=== PATIENT | female | born 1980 | race Caucasian/White ===

== ENCOUNTER → 2016-06-19 | Outpatient (CLI) | payer OTHER ==
--- NOTE | 2016-06-19 20:21 | US ---
June 19, 2016 Dear Geena Anders CNM, Thank you very much for allowing us to see your patient Raya King. As you know, she is a 35-year -old, 1 who was asked to see us for aneuploidy screening and consult. Her history is significant for advanced maternal age (36 at delivery) and uterine fibroids. LMP: 03/27/2016 Age by Dates: 12 weeks 5 days EDC: 12/27/2016 by 7-week ultrasound ULTRASOUND [place] rump length: 75 mm Gestational age by crown rump length: 13 weeks 3 day(s) SKYLAR by crown rump length: 12/22/2016 Consistent with established dating: Yes Nuchal translucency: 1.5 mm Nasal bone: Present heart rate: 153 bpm Placenta: Anterior Right ovary not visualized. Left ovary not visualized. There are two uterine fibroids visualized on today's ultrasound. One is subserosal and located poste riorly. It measures 2.9 x 2.3 x 2.3 cm. The other is located on the right and measures 2.6 x 2.5 x 2.1 cm. No overt structural anomalies were identified for this early ultrasound, but please note that a full anatomic evaluation has not occurred at this early gestational age. IMPRESSION: 1. Intrauterine at 12 weeks 5 days with EDC 12/27/2016. 2. The limited anatomy appears normal. 3. Advanced maternal age. The two Down syndrome markers are normal. We discussed the different opti ons of diagnosis that are available to the patient. We discussed the Sequential Screen and cell-free DNA testing (cffDNA, NIPT). The Sequential Screen has a 92% detection rate for Downs syndrome and a 90% detection rate for trisomy 18. It also screens for spina bifida. The cffDNA fara t screens for trisomy 21, trisomy 18, and trisomy 13 with a low false positive and false negative rat e. A separate blood draw for MSAFP is still required for assessment of neural tube defect risk. Bot h the Sequential Screen and cffDNA are screening tests, and positive results require confirmation wit h invasive testing for a definitive diagnosis. The only way to know the chromosomes of the fetus wo uld be to have an invasive test such as an amniocentesis or chorionic villus sampling, risks of which were reviewed. She does not desire invasive testing at this time. 4. Uterine fibroids. Fibroids are benign growths of the myometrium. They can be asymptomatic or ca n cause symptoms such as pelvic pain and heavy periods. They can grow in size under the hormonal inf luences of . Depending on their size and location they may increase risks of growth restric tion, labor, malpresentation, and hemorrhage during . RECOMMENDATIONS: Raya decided to proceed with the Sequential Screen today while she inquires about insurance covera ge for NIPT. I reviewed that NIPT can be done anytime during the after 10 weeks. We took the liberty of drawing her blood today. Someone from this office will contact the patient with the r esults of her testing. -She will need to have the blood draw for the second part of her Sequential Screen drawn after 16 wee ks. -Recommend detailed anatomy ultrasound at 20 weeks. Thank you for allowing us the opportunity to evaluate your patient. Should you have any further ques tions or concerns please do not hesitate to contact me. Approximately 30 minutes were spent with the patient, of which 25 minutes were spent in [id number] consultation discussing screening and diagnosis and uterine fibroids. Vianney Watts M.D., Ph.D. Computational Geneticist Department of Obstetrics and Gynecology [facility]
--- NOTE | 2016-06-20 08:19 | US ---
Obstetrical Ultrasound 1st Trimester, Nuchal measurement, <14 weeks Clinical Indications: Advanced maternal age. Intrauterine . Findings: A single viable intrauterine fetus is identified. LMP: March 27, 2016 Gestational Age by LMP: 12 weeks 5 days SKYLAR by LMP: December 27, 2016 CRL: 75.32 mm Gestational Age by CRL: 13 weeks 5 days SKYLAR by CRL: December 22, 2016 FHR = 153 beats per minute. Nuchal translucency is 1.5 mm. Nasal bone is identified. No subchorionic hemorrhage. Anterior placenta. Cervix appears closed. Ovaries not visualized. 2 uterine fibroids with a posterior uterine fibroid measuring 2.9 x 2.3 x 2.3 cm and a right uterine fibroid measuring 2.6 x 2.5 x 2.1 cm. Impression: 1. Single viable intrauterine gestation with size consistent with LMP dates. 2. FHR = 153 BPM. 3. Recommend followup anatomy scan between 19 and 20 weeks gestation. 4. Uterine fibroids. 5.Please see Dr. Vianney Watts consult and recommendations.
== END ==
LOC: FIMAGING 12:07
PROVIDERS: ATTEND Midwife
DX: O09.511 Supervision of elderly primigravida, first trimester (principal); O34.11 Maternal care for benign tumor of corpus uteri, first trimester

== ENCOUNTER → 2016-07-15 | Outpatient (CLI) | payer OTHER | LOC: FIMAGING 12:45 | PROVIDERS: ATTEND Midwife | DX: O09.522 Supervision of elderly multigravida, second trimester (principal); Z3A.16 16 weeks gestation of pregnancy; O34.592 Maternal care for other abnormalities of gravid uterus, second trimester; D25.9 Leiomyoma of uterus, unspecified ==

== ENCOUNTER → 2016-08-07 | Outpatient (CLI) | payer OTHER | LOC: FIMAGING 10:39 | PROVIDERS: ATTEND Midwife | DX: O09.512 Supervision of elderly primigravida, second trimester (principal); O34.12 Maternal care for benign tumor of corpus uteri, second trimester; Z3A.19 19 weeks gestation of pregnancy ==

== ENCOUNTER → 2016-12-26 | Outpatient (CLI) | payer OTHER ==
[~2016-12-26] MED LIST: PROPOFOL 200 MG/20 ML VIAL ONE
== END ==
LOC: FIMAGING 11:53
PROVIDERS: ATTEND Midwife
DX: O28.3 Abnormal ultrasonic finding on antenatal screening of mother (principal); O34.13 Maternal care for benign tumor of corpus uteri, third trimester; O09.513 Supervision of elderly primigravida, third trimester; Z3A.39 39 weeks gestation of pregnancy
CPT/HCPCS: J2704

== ENCOUNTER 2016-12-28 01:58 | Inpatient (IN) | payer OTHER ==
[2016-12-28] MEDS ORDERED: TERBUTALINE SULFATE 1 MG/ML VIAL IV PRN (03:02)
[2016-12-28] MEDS ORDERED: AMPICILLIN SODIUM 2 GM in NS 100 ML IV ONE (03:02)
[2016-12-28] MEDS ORDERED: OXYTOCIN/RINGERS LACTATE 1,000 ML IV PRN (03:02)
[2016-12-28] MEDS ORDERED: IBUPROFEN 600 MG TAB PO PRN (03:02)
[2016-12-28] MEDS ORDERED: OLIVE OIL 118 ML BTL MISC PRN (03:02)
[2016-12-28] MEDS ORDERED: LR 1,000 ML IV PRN (03:02)
[2016-12-28] MEDS ORDERED: EPSOM SALT 454 GM TP PRN (03:02)
[2016-12-28] MEDS ORDERED: AMMONIA AROMATIC 1 EACH AMP IH ONE (03:18)
[2016-12-28] MEDS ORDERED: OXYTOCIN 10 UNIT/ML VIAL ONE (03:18)
[2016-12-28] MEDS ORDERED: LIDOCAINE 1% 300 MG/30 ML SDV ONE (03:18)
[2016-12-28] MEDS ORDERED: MISOPROSTOL 200 MCG TAB ONE (03:19)
[2016-12-28 03:59] LABS: % IMMATURE GRANULYOCYTES 0.5 % (0.0-1.1); ABSOLUTE IMMATURE GRANULOCYTES 0.08 10^3/uL (0.00-0.10); ADD DIFF? NO; ADD MORPH? NO; ADD SCAN? NO; ATYPICAL LYMPHOCYTE FLAG 0 (0-99); FRAGMENT RBC FLAG 0 (0-99); HEMATOCRIT 38.5 % (38.0-47.0); HEMOGLOBIN 13.3 g/dL (12.6-16.3); LEFT SHIFT FLG 0 (0-99); LIPEMIA HEMOLYSIS FLAG 90 (0-99); MEAN CELL HEMOGLOBIN 31.3 pg (27.9-34.1); MEAN CELL HEMOGLOBIN CONCENTR. 34.5 g/dL (32.4-36.7); MEAN CELL VOLUME 90.6 fL (81.5-99.8); MEAN PLATELET VOLUME 11.1 fL (8.7-11.7); PLATELET CLUMPS FLAG 10 (0-99); PLATELET COUNT 275 10^3/uL (150-400); RED BLOOD CELL COUNT 4.25 10^6/uL (4.18-5.33); RED CELL DISTRIBUTION WIDTH 13.1 % (11.5-15.2)
--- NOTE | 2016-12-28 07:01 | GHP ---
[f rep st] HISTORY AND PHYSICAL DATE OF ADMISSION: 12/28/2016 CHIEF COMPLAINT: Uterine contractions. HISTORY OF PRESENT ILLNESS: Patient is a 36-year-old, 1, para 0, at 40 weeks and 1 day gestation who presents with regular uterine contractions. She has had a complicated by advanced maternal age with initial 2nd trimester screening showing increased risk for Down's syndrome, but then she had followup noninvasive screening negative and normal anatomy ultrasound, Rh-negative, status post RhoGAM at 28 weeks, two small uterine fibroids have been stable, and group B Strep positive. She initially started lc around 11 p.m. She presented to the hospital around 2 a.m. and was found to be 3 cm dilated. On repeat check 2 hours later she had progressed to 6 cm dilation. She denies any leaking fluid or vaginal bleeding. Her baby is active. She has no other concerns. She plans an unmedicated delivery. REVIEW OF SYSTEMS: Negative apart from history of present illness. PAST MEDICAL HISTORY: Noncontributory. PAST SURGICAL HISTORY: None. MEDICATIONS: vitamin 65 mg tablet, iron, fish oil. FAMILY HISTORY: Noncontributory. SOCIAL HISTORY: No alcohol, tobacco, or drug use. LABORATORY TESTING: Notable for blood type O negative with antibody screen negative. Initial hematocrit of 37. Immune to varicella and rubella, nonreactive to RPR, HIV and hepatitis B surface antigen. She had a negative urine culture, a negative Pap smear in 2016, negative testing to gonorrhea and chlamydia. She is group B Strep positive. She received flu vaccine and Tdap. She had a normal 1 hour Glucola. OBJECTIVE: VITAL SIGNS: Blood pressure 123/77, heart rate 93, O2 saturation is 97%, temperature 36.7. Hematocrit 38.5. GENERAL: Alert, awake and oriented , in mild to moderate distress with contractions. LUNGS: Respirations unlabored. CARDIOVASCULAR: Regular rate and rhythm. ABDOMEN: Gravid uterus at term. Soft and nontender. EXTREMITIES: No edema. Warm and dry. : Sterile vaginal exam, 7-8 cm dilated, 90% effaced, -1 station. Bulging bag of water. heart rate tracing baseline 120 beats per minute. Moderate variability. Positive accelerations. No decelerations. ASSESSMENT AND PLAN: The patient is a 36-year-old 1, at 40 weeks and 1 day estimated gestational age. She is in active labor. She is GBS positive and receiving IV ampicillin. She has received 1 dose. Her status is reassuring. We will proceed with routine intrapartum care. She desires an unmedicated . We will expect and plan for vaginal delivery. /[id number]/MODL MTDD
--- NOTE | 2016-12-28 08:04 | OBPROG ---
OBG Labor Progress Note Assessment/Plan: Assessment: G1 at 40w1d in active labor Minimal change since last check GBS pos, receiving 2nd dose of ampicillin status reassuring Plan: Recommend AROM for AOL given no change in 2.5 hrs she agrees: will start nitrous first and also finish 2nd dose of abx which is currently infusing 12/28/16 08:02 Subjective: Getting tired. Wants to try nitrous Objective: 12/28/16 03:20 Patient ABO/Rh O NEGATIVE 12/28/16 03:20 136/83 86 18 98% 36.6 - SVE Dilation (cm): 8 Effacement (%): 90 Station: -1 Gutierrez FHR (bpm): 110 FHR Pattern Variability: Moderate FHR Category: 1 Membranes: Intact Oxytocin Orders Assessment - Pre-Induction/Augmentation Assessment Gestational Age: 40 week(s) and 1 day(s) ICD10 Worksheet Patient Problems: Problems Problem Status Onset Active labor Acute - ICD10 Problem Qualifiers (1) Active labor
--- NOTE | 2016-12-28 10:30 | OBPROG ---
OBG Labor Progress Note Assessment/Plan: Assessment: G1 at 40w1d in active labor Now pushing Intermittent monitoring-- status reassuring Plan: Continue pushing, pt with good effort and making good progress Subjective: Pushing with good effort Objective: 12/28/16 03:20 Patient ABO/Rh O NEGATIVE 12/28/16 03:20 - SVE Dilation (cm): 10 Effacement (%): 100 Station: +1 Gutierrez Current Contraction Pattern: Regular FHR (bpm): 130 FHR Pattern Variability: Moderate FHR Category: 1 Membranes: Intact Oxytocin Orders Assessment - Pre-Induction/Augmentation Assessment Gestational Age: 40 week(s) and 1 day(s) ICD10 Worksheet Patient Problems: Problems Problem Status Onset Active labor Acute - ICD10 Problem Qualifiers (1) Active labor
[2016-12-28] MEDS ORDERED: fentaNYL 100 MCG/2 ML INJ ONE (12:23)
[2016-12-28] MEDS ORDERED: METHYLERGONOVINE MAL 0.2 MG/ML INJ ONE ×4 (13:00→13:50)
[2016-12-28] MEDS ORDERED: HEMABATE 250 MCG/1 ML AMP IM ONE (13:28)
[2016-12-28] MEDS ORDERED: TRANEXAMIC ACID 1,000 MG in NS 100 ML IV ONE (14:00)
[2016-12-28 14:25] LABS: ADD MORPH? YES; ATYPICAL LYMPHOCYTE FLAG 0 (0-99); FRAGMENT RBC FLAG 0 (0-99); HEMATOCRIT 19.8 % (38.0-47.0); LIPEMIA HEMOLYSIS FLAG 80 (0-99); MEAN CELL HEMOGLOBIN 31.4 pg (27.9-34.1); MEAN CELL HEMOGLOBIN CONCENTR. 30.3 g/dL (32.4-36.7); MEAN CELL VOLUME 103.7 fL (81.5-99.8); PLATELET CLUMPS FLAG 0 (0-99); RED BLOOD CELL COUNT 1.91 10^6/uL (4.18-5.33); RED CELL DISTRIBUTION WIDTH 12.2 % (11.5-15.2)
[2016-12-28 14:27] LABS: LEFT SHIFT FLG 110 (0-99)
[2016-12-28 14:29] LABS: PLATELET COUNT 23 10^3/uL (150-400)
[2016-12-28 14:32] LABS: ADD DIFF? YES; ADD SCAN? NO
--- NOTE | 2016-12-28 14:41 | CPEKG ---
Heart Rate: 97 RR Interval: 619 P-R Interval: 144 QRSD Interval: 90 QT Interval: 400 QTC Interval: 508 P [place]: 76 QRS [place]: 95 T Wave [place]: 66 EKG Severity - BORDERLINE ECG - EKG Impression: SINUS RHYTHM EKG Impression: BORDERLINE RIGHT AXIS DEVIATION EKG Impression: BORDERLINE PROLONGED QT INTERVAL Electronically Signed By: Maximiliano Walker 29-Dec-2016 17:23:47
[2016-12-28 15:12] LABS: PLATELET ESTIMATE DECREASED (ADEQ)
[2016-12-28 15:15] LABS: ECHINOCYTES 2+
[2016-12-28 15:27] LABS: ALPHA ANGLE 75.2 degrees (53-72); K TIME 1.2 minutes (1-3); MAXIMUM AMPLITUDE 68.2 mm (50-70); TEG CONTAINER Citrated Kaolin
[2016-12-28 15:55] LABS: APTT > 250.0 SEC (23.0-38.0); FIBRINOGEN < 60 mg/dL (214-456)
--- NOTE | 2016-12-28 15:55 | OBDEL ---
Info Type: Vaginal GBS+: Yes Antibiotic Used for + GBS: Ampicillin Number of Antibiotic Doses Given: 3 Indications for Delivery: Spontaneous Labor Vaginal Delivery - Labor and Delivery Onset of Contractions Date: 12/27/16 Onset of Contractions Time: 11:00 Onset of Contractions Type: Spontaneous Rupture of Membranes Date: 12/28/16 Rupture of Membranes Type: Artificial Amniotic Fluid Color: Clear Dilation Complete Date: 12/28/16 Placenta Delivery Date: 12/28/16 Placenta Delivery Time: 12:30 Total Hours of Labor: 25 Non-surgical Procedures: Amniotomy Laceration: 1st Degree Repair: 3-0 Vaginal Sponge Count Correct: Yes Vaginal Needle Count Correct: Yes Vaginal Sweep Performed: Yes EBL: 3500 Delivery Events: Post Hemorrhage, Retained Placenta Delivery Comment: of vigorous male . About 3 minutes after delivery there was a large gush of dark blood (~ 200 ml) and lengthening of the cord consistent with separation of the placenta. The cord was doubly clamped and cut. IV pitocin was started. Fundal massage and gentle cord traction was performed. Initially there was good movement of the placenta to the lower uterine segment, however after this the placenta was not advancing with ongoing fundal massage and gentle cord traction. I asked the patient to push, which she did a few times. This brought the placenta partially out through the cervix. Additional massage was performed. Gentle cord traction was again attempted and the cord avulsed at this time. An attempt was made to grasp the placenta and remove, but only pieces of the placenta were obtainable. The US and banjo curette and noman forceps were called for. The US showed there was still a piece of adherent placenta in the anterior wall. This was not able to be removed with manual attempt, noman forceps, or banjo curette, the latter 2 which were done under ultrasound guidance. At this time she began to have more bleeding and atony of the lower uterine segment, with an EBL of 700 ml. One dose IM methergine was given. The recommendation was made to proceed to the OR for D&C for retained placenta under ultrasound guidance. We reviewed the risks and benefits and she agreed to proceed. She also agreed to blood transfusion if indicated, and 2 units pRBCs were put on hold. Please see operative note for further details. [place] Data Gutierrez Delivery Date: 12/28/16 Delivery Time: 12:05 SKYLAR: 12/27/16 Gestational Age: 40 week(s) and 1 day(s) Sex of : Male Score (1 Min): 8 Score (5 Min): 9 ICD10 Worksheet Patient Problems: Problems Problem Status Onset Active labor Acute hemorrhage Acute Retained placenta Acute Vaginal delivery Acute - ICD10 Problem Qualifiers (1) Active labor (2) hemorrhage Qualifiers: hemorrhage type: P (3) Vaginal delivery (4) Retained placenta Qualifiers: Retained placenta detail: R
[2016-12-28 16:10] LABS: % IMMATURE GRANULYOCYTES 0.9 % (0.0-1.1); ABSOLUTE IMMATURE GRANULOCYTES 0.19 10^3/uL (0.00-0.10); ADD DIFF? NO; ADD MORPH? NO; ADD SCAN? YES; ATYPICAL LYMPHOCYTE FLAG 0 (0-99); FRAGMENT RBC FLAG 0 (0-99); HEMATOCRIT 43.7 % (38.0-47.0); LEFT SHIFT FLG 60 (0-99); LIPEMIA HEMOLYSIS FLAG 90 (0-99); MEAN CELL HEMOGLOBIN 31.4 pg (27.9-34.1); MEAN CELL HEMOGLOBIN CONCENTR. 34.3 g/dL (32.4-36.7); MEAN CELL VOLUME 91.4 fL (81.5-99.8); MEAN PLATELET VOLUME 11.2 fL (8.7-11.7); PLATELET COUNT 245 10^3/uL (150-400); RED BLOOD CELL COUNT 4.78 10^6/uL (4.18-5.33); RED CELL DISTRIBUTION WIDTH 13.2 % (11.5-15.2)
[2016-12-28] MEDS ORDERED: ALTEPLASE 2 MG VIAL IVP PRN (16:10)
--- NOTE | 2016-12-28 16:32 | GCON ---
[f rep st] CONSULTATION PULMONARY CRITICAL CARE CONSULTATION DATE OF CONSULTATION: 12/28/2016 REASON FOR CONSULTATION: bleed, acute blood loss anemia. HISTORY: The patient is a 36-year-old 1 now para 1, who was admitted for child . She started lc and was dilated at 3 cm. She had a spontaneous vaginal delivery, but had retain ed placenta and had uterine bleeding secondary to this post delivery. She was taken to the OR. D a nd C was performed and retained materials removed. She continued, however, to bleed. Estimated blo od loss is possibly 3000 mL ?. Massive transfusion protocol was initiated. She has received 6 unit s of packed red blood cells with more on hold, 2 units of platelets and 2 of fresh frozen plasma. S he was also given tranexamic acid. She was given terbutaline x1. She is also on intravenous fluids and ampicillin intravenously. A uterine balloon has been placed and remains in place for monitoring of intrauterine bleeding. The vagina was packed. She is being attended to by her OB physician as well as an OB nurse, as well as our nurses from the ICU. She is awake and alert. She has been shivering since the OR. Vital signs are currently stable. Fernando landrum is conversant and appropriate. PAST MEDICAL HISTORY: Is unremarkable. She has no medical problems. PAST SURGICAL HISTORY: No previous surgical history MEDICATIONS: She was only on vitamins, iron and fish oil prior to admission. SOCIAL HISTORY: . No alcohol. No tobacco. No drug use. FAMILY HISTORY: Noncontributory. PHYSICAL EXAMINATION: GENERAL: Reveals a woman who is shivering intermittently and has 2 blankets over her. VITAL SIGNS: Blood pressure is currently 116/88, heart rate is 86 with sinus rhythm on t he monitor. On an oxy mask, saturations are 100%. Respiratory rate is 16. HEENT: Mucous membrane s are somewhat dry. NECK: There is no lymphadenopathy or thyromegaly. No jugular venous distentio n. CHEST: Clear bilaterally. HEART: Regular in rate and rhythm, without significant murmur. The re are no gallops. ABDOMEN: Soft. There is some erythema over the abdomen, without cellulitis. G ENITOURINARY/PELVIC: A Reddy catheter and a uterine balloon are both in place. There is a small am ount of bloody drainage that is being monitored from the uterus. Urine output is present. EXTREMIT IES: Unremarkable for edema, cords, or tenderness. SKIN: Shows several areas of hives. NEUROLOGI C: Intact. LABORATORY DATA: Her latest laboratory values show a white blood cell count of 2500 down from appro ximately 15,000 an hour prior, hematocrit is currently approximately 20 down from 38, platelets are 223,000 down from 275,000. I believe that these numbers do not represent the complete blood and blo od products given in the operating room. Further studies are pending. PT and PTT are pending. D-d morris is normal. Fibrinogen is pending. ASSESSMENT: 1. bleed secondary to retained placenta. 2. Acute blood loss anemia associated with leukopenia and thrombocytopenia. This may all be diluti onal. DIC may be playing a role. DIC panel is pending. PLAN: The patient will be resuscitated in the intensive care unit. Intravenous fluids will be cont inued. Blood and blood products will be given as indicated based on subsequent laboratory values. A complete metabolic panel will be performed and abnormalities addressed as indicated. She will be monitored closely by OB for ongoing uterine bleeding. If bleeding persists, their first plan would be to consider uterine embolization in IR. /[id number]/MODL
[2016-12-28 16:34] LABS: PLATELET CLUMPS FLAG 250 (0-99)
[2016-12-28 16:43] LABS: SCAN NEGATIVE
[2016-12-28] MEDS ORDERED: methylPREDNISolone SOD SUCC 40 MG/ML VIAL IVP ONE (16:45)
[2016-12-28] MEDS ORDERED: FAMOTIDINE 20 MG/2 ML SDV IVP ONE (16:45)
[2016-12-28 17:06] LABS: HEMATOCRIT 37.5 % (38.0-47.0); HEMOGLOBIN 13.4 g/dL (12.6-16.3); MEAN CELL HEMOGLOBIN 31.5 pg (27.9-34.1); MEAN CELL HEMOGLOBIN CONCENTR. 35.7 g/dL (32.4-36.7); RED BLOOD CELL COUNT 4.26 10^6/uL (4.18-5.33); RED CELL DISTRIBUTION WIDTH 13.2 % (11.5-15.2)
[2016-12-28 17:13] LABS: PLATELET COUNT 246 10^3/uL (150-400)
[2016-12-28 17:15] LABS: INR 1.06 (0.83-1.16); PROTIME(PATIENT) 13.7 SEC (12.0-15.0)
[2016-12-28 17:17] LABS: ANION GAP 7 mEq/L (8-16); CALCIUM 9.3 mg/dL (8.5-10.4); CARBON DIOXIDE 16 mEq/l (22-31); CHLORIDE 108 mEq/L (97-110); CREATININE 0.6 mg/dL (0.6-1.0); GLOMERULAR FILTRATION RATE > 60; GLUCOSE 106 mg/dL (70-100); POTASSIUM 3.9 mEq/L (3.5-5.2); SODIUM 131 mEq/L (134-144)
[2016-12-28 17:21] LABS: APTT 26.7 SEC (23.0-38.0); FIBRINOGEN 300 mg/dL (214-456)
[2016-12-28] MEDS ORDERED: HYDROmorphONE/DILAUDID 1 MG/ML SYR IVP PRN (18:09)
[2016-12-28] MEDS: GENTAMICIN SULFATE 120 MG in D5W 100 ML IV SCH (18:27)
[2016-12-28] MEDS ORDERED: NS 1,000 ML IV SCH (19:00)
--- NOTE | 2016-12-28 19:04 | SOAPPROG ---
SOAP Progress Note Assessment/Plan: Assessment: , PPD#0 s/p , POD#0 s/p D&C, massive transfusion for PPH/retained placenta Pt is hemodynamically stable and doing well Minimal output from Bakri Fundus firm Labs reassuring with normal Hgb, INR, fibrinogen Reviewed plan of care with Dr. Merchant: no UAE indicated at this time Plan: Monitor overnight in ICU Clear liquid diet, advance as tolerated Bedrest tonight, plan advance activity tomorrow Gentamycin 150 mg po q8h while Bakri in place (pt developed hives upon arrival to ICU, unknown source but possibly to Ancef given in OR) Monitor bleeding Plan removal Bakri and vag pack tomorrow, to be performed by MD Motley LR with 30 units pitocin at 125 ml/hr, then plan NS at 75 ml/hr per recommendation of Dr. Ty Repeat CBC and BMP in AM or earlier prn 12/28/16 19:04 Subjective: Tired but overall feeling well. Hungry. No pain. Wants to start pumping Objective: Vital Signs Temp Pulse Resp BP Pulse Ox 95 18 120/64 95 12/28/16 18:00 12/28/16 18:00 12/28/16 18:00 12/28/16 18:00 Laboratory Results 12/28/16 17:00 12/28/16 17:00 12/27/16 12/28/16 12/29/16 05:59 05:59 05:59 Intake Total 359.8 Output Total 750 Balance -390.2 PT 13.7 SEC (12.0-15.0) 12/28/16 17:00 INR 1.06 (0.83-1.16) 12/28/16 17:00 Gen: alert, awake Resp: lungs clear, respirations unlabored CV: RRR Abd: soft, nontender, uterus firm at umbilicus Ext: no edema Reddy catheter with adequate output Bakri draining small amount dark watery blood (~ 25 ml/hr) ICD10 Worksheet Patient Problems: Problems Problem Status Onset Active labor Acute hemorrhage Acute Retained placenta Acute Vaginal delivery Acute - ICD10 Problem Qualifiers (1) Active labor (2) hemorrhage Qualifiers: hemorrhage type: P (3) Vaginal delivery (4) Retained placenta Qualifiers: Retained placenta detail: R
[2016-12-29] MEDS: GENTAMICIN SULFATE 120 MG in D5W 100 ML IV SCH (01:58)
[2016-12-29 04:31] LABS: HEMATOCRIT 32.1 % (38.0-47.0); HEMOGLOBIN 11.4 g/dL (12.6-16.3); MEAN CELL HEMOGLOBIN 31.4 pg (27.9-34.1); MEAN CELL HEMOGLOBIN CONCENTR. 35.5 g/dL (32.4-36.7); MEAN CELL VOLUME 88.4 fL (81.5-99.8); RED BLOOD CELL COUNT 3.63 10^6/uL (4.18-5.33); RED CELL DISTRIBUTION WIDTH 14.3 % (11.5-15.2)
[2016-12-29 04:51] LABS: ANION GAP 7 mEq/L (8-16); CALCIUM 9.3 mg/dL (8.5-10.4); CARBON DIOXIDE 19 mEq/l (22-31); CHLORIDE 114 mEq/L (97-110); CREATININE 0.6 mg/dL (0.6-1.0); GLOMERULAR FILTRATION RATE > 60; GLUCOSE 91 mg/dL (70-100); POTASSIUM 4.2 mEq/L (3.5-5.2); SODIUM 140 mEq/L (134-144)
--- NOTE | 2016-12-29 07:43 | GOP ---
[f rep st] OPERATIVE REPORT DATE OF OPERATION: 12/28/2016 SURGEON: Angelia Randall MD CASHIER CLERK: Fatmata Coello DO ANESTHESIA: Spinal. ANESTHESIOLOGIST: Dr. Sameer Cullen. PREOPERATIVE DIAGNOSIS: 1. hemorrhage. 2. Retained placenta. 3. Fibroid uterus POSTOPERATIVE DIAGNOSIS: 1. hemorrhage. 2. Retained placenta. 3. Fibroid uterus PROCEDURE PERFORMED: 1. Exam under anesthesia. 2. Suction, dilation, and curettage. 3. Placement of Bakri balloon. FINDINGS: Adherent, 4 cm, piece of placenta to the anterior uterine wall in the lower uterine segment. Lower uterine segment atony, resolved with Bakri balloon. SPECIMENS: Placenta. ESTIMATED BLOOD LOSS: Between the delivery room and operating room, a total of 3500 mL. INDICATIONS: The patient is a 36-year-old, 1, now para 1-0-0-1, who presented to the hospital in spontaneous active labor at 40 weeks and 1 day gestation. She proceeded to have a normal labor without indication for augmentation, apart from an AROM at 8 cm dilation. She pushed for 2 hours and had an uncomplicated vaginal delivery of a 7-pound 7-ounce, male infant, with Apgars of 8 and 9. About 3 minutes after delivery of the infant, there was a large gush of dark blood, approximately 200 mL, and lengthening of the cord consistent with separation of the placenta. The cord was doubly clamped and cut at this time. IV Pitocin was started. Fundal massage and gentle cord traction were performed. Initially, there was good movement of the placenta into the lower uterine segment; however, after this, the placenta would not advance, despite ongoing fundal massage and gentle cord traction. I asked the patient to push, which she did a few times. This did not appreciably advance the placenta. I then did a repair of a small left posterior vaginal laceration while waiting for further placental separation. Additional massage was performed. She began to have some further bleeding around the placenta. Gentle cord traction was again attempted and the cord was avulsed at this time. An attempt was made to grasp the placenta manually in the lower uterine segment and remove it intact; the majority of the placenta was able to be removed in pieces, however, a large portion of the placenta in the lower uterine segment remained adherent. The ultrasound and fabiola curette, and noman uterine forceps were called for. The ultrasound showed the piece of adherent placenta on the anterior wall. This was not able to be removed with additional manual attempts, evacuation with noman forceps, or by banjo curettage, the latter two which were done under ultrasound guidance. The patient declined pain medication and tolerated all of these attempts well. As the portion of placenta was unable to be removed and she was having ongoing bleeding, and now developing atony of the lower uterine segment with a total EBL of 700 mL, I recommended we proceeded to the operating room for an exam under anesthesia, and dilation and curettage. We reviewed the risks and benefits, and she agreed to proceed. We also reviewed the risks of potential need for blood transfusion , to which she also agreed. One dose of IM Methergine was given at this time. Anesthesia was alerted and was available to proceed immediately. Two units of blood were called for at time of transfer to the OR, as she was having ongoing bleeding at this time. DESCRIPTION OF PROCEDURE: In the operating room, a time-out was performed. Spinal anesthetic was placed without difficulty. IV Ancef 2g IV was given. The patient was prepped and draped in a normal sterile fashion in dorsal lithotomy, in Joey stirrups. Her bladder was drained with a red rubber. Upon starting the procedure, it was noted she had additional multiple large gushes of blood with clots. We asked for the blood in the blood bank to be brought to the operating room in preparation for likely need for transfusion. We also alerted interventional radiology and asked them to mobilize their team in the event embolization became indicated. The speculum was placed and the cervix was grasped with a ring forceps. Multiple passes were made under direct ultrasound guidance with the 12 mm suction curette, and also gentle curettage was done with a sharp curette. Scant tissue was obtained. I was then able to reach in and remove the 4 cm adherent portion of placenta, which was attached to the anterior wall of the lower uterine segment. Further passes were made with the suction curette; however, patient was noted to have brisk ongoing bleeding at this time and began to have dropping of her blood pressures and an increasing pulse. IM hemabate was administered. She was found to have a very firm uterine fundus, but had atony of the lower uterine segment with ongoing bleeding. There was no evidence of further retained tissue. At this time, the estimated blood loss was approximately 5689-2408 mL and as she had ongoing bleeding, a code white was called. Blood began transfusing shortly after this time and additional IVs were placed. 1g IV tranexamic acid was administered. The patient continued to be awake and alert. An additional dose of IM Hemabate was given as well as 800 mcg of Cytotec rectally, and an additional dose of IM methergine. I had called in an account assistant, Dr. Fatmata Coello, who arrived at the bedside. A thorough exam was performed demonstrating no cervical laceration and no evidence of uterine perforation. A gonzales catheter was placed in the bladder. With her assistance on ultrasound, we placed a Bakri balloon with 350 mL normal saline in the lower uterine segment. Shortly after placement of the Bakri balloon, we noted significant improvement in her bleeding. Intraoperative laboratory testing showed a hemoglobin of 6.0 after 4 units of PRBCs had already been transfused, so the order was given to transfuse an additional 2 units PRBCs. She also received 2 units of FFP and 2 units of platelets. A very small amount of oozing was noted at this time, but there was no further active bleeding, and the patient showed stable blood pressures and heart rate. A very small anterior vaginal laceration was repaired with 1 [id number]. Stitches that had been previously placed in the delivery room of a small left vaginal laceration were noted to be intact and hemostatic. A vaginal packing was placed at this time. Pitocin was continued through the IV. A quantitative blood loss was performed by weighing the blood and counting the soaked Ray-Tecs and laps, and a total EBL of 3500 mL was determined, including from time of delivery. The patient was noted to be hemodynamically stable at this time and was brought to the ICU for higher level of monitoring. She continued to be alert and awake, and in good condition. Counts were correct x2. /[id number]/MODL MTDD
--- NOTE | 2016-12-29 09:13 | OBPP ---
Progress Note Assessment/Plan: Assessment: , PPD#1 s/p , POD#1 s/p D&C, massive transfusion for PPH/retained placenta s/p 5.5 units pRBCs, 2 FFP, 2 platelets Pt is hemodynamically stable and doing well Fundus firm Labs reassuring Bakri removed Plan: Continue to monitor bleeding closely IR available for embolization if indicated OK to advance diet, tylenol/ibuprofen at her request Assuming she remains stable will transfer out of ICU this afternoon Symptomatic relief for hemorrhoids Stop antibiotics Subjective: Feels very sore but otherwise OK. No dizziness of shortness of breath. Tolerating liquid diet. Baby has been latching. Objective: 12/29/16 04:13 12/29/16 04:13 Patient ABO/Rh O NEGATIVE 12/28/16 03:20 Temp Pulse Resp BP Pulse Ox 37.0 C 101 H 16 106/62 96 12/29/16 08:00 12/29/16 08:00 12/29/16 08:00 12/29/16 08:00 12/29/16 08:00 Gen: alert, awake, NAD Resp: unlabored, speaking in full sentences, on room air CV: RRR Abd: soft, nontender Ext: no edema : no bleeding around bakri. Swelling of perineum IR team alerted that Bakri to be removed. Bakri deflated and removed along with vaginal packing. No vaginal bleeding noted at this time. Reddy catheter also removed. Pt able to ambulate to bathroom without difficulty, no bleeding noted
[2016-12-29] MEDS: ACETAMINOPHEN 325 MG TAB PO PRN ×2 (09:18→16:18)
--- NOTE | 2016-12-29 09:42 | PDINTPN ---
Quantitative Researcher Progress Note Assessment/Plan: Assessment: * bleeding-status post D&C and vaginal packing * Status post massive transfusion protocol * Anemia-H&H stable * Pain-well tolerated Plan: Follow H and H closely Doubt the need for IR intervention Likely to the floor later Subjective: Sitting up in chair with child. Resting comfortably. Objective: Vital Signs Temp Pulse Resp BP Pulse Ox 37.0 C 101 H 16 106/62 96 12/29/16 08:00 12/29/16 08:00 12/29/16 08:00 12/29/16 08:00 12/29/16 08:00 Laboratory Results 12/29/16 04:13 12/29/16 04:13 12/28/16 12/29/16 12/30/16 05:59 05:59 05:59 Intake Total 5622.8 Output Total 8105 Balance -2482.2 PT 13.7 SEC (12.0-15.0) 12/28/16 17:00 INR 1.06 (0.83-1.16) 12/28/16 17:00 Physical Exam - Physical Exam General Appearance: WD/WN, alert, no apparent distress EENT: PERRL/EOMI, normal ENT inspection, pharynx normal, TMs normal Neck: non-tender, full range of motion, supple, normal inspection Respiratory: chest non-tender, lungs clear, normal breath sounds Cardiac/Chest: normal peripheral pulses, regular rate, rhythm Peripheral Pulses: 2+: carotid (R), carotid (L), femoral (R), femoral (L), dorsalis-pedis (R), dorsalis-pedis (L) Abdomen: normal bowel sounds, non-tender, soft Pelvic Exam: deferred Rectal: deferred Skin: normal color, warm/dry Neuro/Psych: no motor/sensory deficits, alert, normal mood/affect, oriented x 3 ICD10 Worksheet Patient Problems: Problems Problem Status Onset Active labor Acute hemorrhage Acute Retained placenta Acute Vaginal delivery Acute
[2016-12-29] MEDS: AMPICILLIN SODIUM 1 GM in NS 100 ML IV SCH ×2 (10:22→10:23)
[2016-12-29] MEDS ORDERED: METHYLERGONOVINE MAL 0.2 MG/ML INJ IM ONE ×3 (13:02→14:12)
[2016-12-29] MEDS ORDERED: SIMETHICONE 80 MG TAB CHEW PO PRN (13:12)
[2016-12-29] MEDS ORDERED: HYDROCORTISONE 0.5% CREAM TP PRN (13:12)
--- NOTE | 2016-12-29 13:12 | OBPP ---
Progress Note Assessment/Plan: Assessment: , PPD#1 s/p , POD#1 s/p D&C, massive transfusion for PPH/retained placenta s/p 5.5 units pRBCs, 2 FFP, 2 platelets Pt is hemodynamically stable and doing well Fundus firm Labs reassuring Bakri removed, no further significant bleeding, appropriate lochia Plan: Transfer to mother/baby Continue to monitor closely, plan until PPD#3 at minimum Needs Rhogam 12/29/16 13:12 Subjective: feels well. Up and ambulating. Voided. Tolerating regular diet. Has soaked 1/2 pad in 4+ hours Objective: 12/29/16 04:13 12/29/16 04:13 Patient ABO/Rh O NEGATIVE 12/28/16 03:20 Temp Pulse Resp BP Pulse Ox 36.7 C 100 12 101/69 98 12/29/16 12:00 12/29/16 12:00 12/29/16 12:00 12/29/16 12:00 12/29/16 12:00
[2016-12-29] MEDS: DOCUSATE SODIUM 100 MG CAP PO PRN ×2 (13:29→22:29)
[2016-12-29] MEDS ORDERED: HEMABATE 250 MCG/1 ML AMP IM ONE ×2 (13:40→13:52)
[2016-12-29] MEDS ORDERED: MISOPROSTOL 200 MCG TAB PR ONE (14:10)
[2016-12-29] MEDS: IBUPROFEN 600 MG TAB PO PRN (18:52)
[2016-12-30] MEDS: IBUPROFEN 600 MG TAB PO PRN ×3 (01:41→17:00)
[2016-12-30 05:11] VITALS: RESP 16
[2016-12-30 05:27] LABS: HEMATOCRIT 29.6 % (38.0-47.0); HEMOGLOBIN 10.3 g/dL (12.6-16.3); MEAN CELL HEMOGLOBIN 31.8 pg (27.9-34.1); MEAN CELL HEMOGLOBIN CONCENTR. 34.8 g/dL (32.4-36.7); MEAN CELL VOLUME 91.4 fL (81.5-99.8); RED BLOOD CELL COUNT 3.24 10^6/uL (4.18-5.33); RED CELL DISTRIBUTION WIDTH 14.6 % (11.5-15.2)
[2016-12-30] MEDS: DOCUSATE SODIUM 100 MG CAP PO PRN (08:37)
--- NOTE | 2016-12-30 12:50 | OBPP ---
Progress Note Assessment/Plan: Assessment: , PPD#2 s/p , POD#2 s/p D&C, massive transfusion for PPH/retained placenta s/p 5.5 units pRBCs, 2 FFP, 2 platelets Pt is hemodynamically stable and doing well Fundus firm Labs reassuring Bakri removed, no further significant bleeding, appropriate lochia Rh neg: baby is also Rh neg, no Rhogam indicated Plan: Continue to monitor closely, plan until PPD#3 Plan follow-up in office in 2 weeks with me Subjective: Feels well. Baby is latching. Up and ambulating, denies dizziness. No significant bleeding. Still with some swelling of perineum but improving. Objective: 12/30/16 05:15 12/29/16 04:13 Patient ABO/Rh O NEGATIVE 12/28/16 03:20 Temp Pulse Resp BP Pulse Ox 36.9 C 84 16 107/67 94 12/30/16 08:30 12/30/16 08:30 12/30/16 08:30 12/30/16 08:30 12/30/16 05:00 Gen: NAD, ambulating Resp: unlabored CV: RRR Abd: soft, mildly distended, nontender Uterus: very firm, 3 FB below U Ext: no edema
[2016-12-31] MEDS: IBUPROFEN 600 MG TAB PO PRN ×3 (01:42→14:33)
[2016-12-31] MEDS: DOCUSATE SODIUM 100 MG CAP PO PRN ×2 (01:42→08:30)
--- NOTE | 2016-12-31 08:21 | OBPP ---
Progress Note Assessment/Plan: Assessment: 36 y.o. s/p with large PPH. Anemic- on Iron and PNV VSS- afebrile PPD#3 and recovering well. Plan: Anticipate discharge to home today. change management consultant PRN. Routine orders and care. 12/31/16 08:18 Subjective: Reports feeling well, just fatigued and achy. Eating and drinking well without n/v. Ambulating without vertigo. Good pain control with current medications. Light vaginal bleeding. with assistance. Good support system. Objective: 12/30/16 05:15 12/29/16 04:13 Patient ABO/Rh O NEGATIVE 12/28/16 03:20 Temp Pulse Resp BP Pulse Ox 36.6 C 80 16 120/75 97 12/30/16 19:35 12/30/16 19:35 12/30/16 19:35 12/30/16 19:35 12/30/16 19:35 Uterine Position/Fundal Height: Umbilicus -1 Uterine Tone: Firm Physical Exam - Physical Exam General Appearance: WD/WN, alert, no apparent distress EENT: normal ENT inspection Neck: non-tender, full range of motion, normal inspection Respiratory: lungs clear, normal breath sounds Cardiac/Chest: regular rate, rhythm Abdomen: non-tender, soft Extremities: non-tender, normal inspection Back: Normal inspection Skin: normal color, warm/dry Neuro/Psych: alert, normal mood/affect, oriented x 3
[2016-12-31] MEDS ORDERED: EPSOM SALT 454 GM TP ONE (08:23)
--- NOTE | 2016-12-31 08:23 | OBGCSDC ---
General Delivery Information - General Info : 1 Para: 1 Delivery Physician/CNM: Angelia Randall Admission Date: 12/28/16 Labs: Patient ABO/Rh O NEGATIVE 12/28/16 03:20 Hct 29.6 % (38.0-47.0) L 12/30/16 05:15 Vaginal - Diagnosis Labor: Spontaneous Presentation at Delivery: Vertex Rupture of Membranes Type: Artificial Amniotic Fluid Color: Clear Laceration: 1st Degree Repair: 3-0 Delivery Events: Post Hemorrhage, Retained Placenta - Operations/Procedures Non-surgical Procedures: Amniotomy L&D Analgesia/Anesthesia Type: Local, Spinal, Nitrous - Delivery Non-surgical Procedures: Amniotomy L&D Analgesia/Anesthesia Type: Local, Spinal, Nitrous Data Gutierrez Delivery Date: 12/28/16 Delivery Time: 12:05 SKYLAR: 12/27/16 Gestational Age: 40 week(s) and 4 day(s) Sex of Infant: Male [place] Weight (gm): 3382 kg Score (1 Min): 8 Score (5 Min): 9 Discharge Information - Discharge Information Discharge Medications: Iron, Ibuprofen, Vitamins Condition: Good Instruction/Follow Up: Four Weeks, Six Weeks Discharge Physician/CNM: Geena Anders
[2016-12-31] MEDS ORDERED: FERROUS SULFATE 140 MG TAB.ER PO SCH (09:00)
[2016-12-31 09:25] VITALS: PULSE 84; TEMP 98.2; O2SAT 98
[2016-12-31 16:02] VITALS: BP 122/74
--- NOTE | 2017-01-01 08:11 | OBGCSDC ---
General Delivery Information - General Info : 1 Para: 1 Delivery Physician/CNM: Angelia Randall Admission Date: 12/28/16 Labs: Patient ABO/Rh O NEGATIVE 12/28/16 03:20 Hct 29.6 % (38.0-47.0) L 12/30/16 05:15 Vaginal - Diagnosis Labor: Spontaneous Presentation at Delivery: Vertex Rupture of Membranes Type: Artificial Amniotic Fluid Color: Clear Laceration: 1st Degree Repair: 3-0 Delivery Events: Post Hemorrhage, Retained Placenta - Operations/Procedures Non-surgical Procedures: Amniotomy L&D Analgesia/Anesthesia Type: Local, Spinal, Nitrous - Delivery Non-surgical Procedures: Amniotomy L&D Analgesia/Anesthesia Type: Local, Spinal, Nitrous Data Gutierrez Delivery Date: 12/28/16 Delivery Time: 12:05 SKYLAR: 12/27/16 Gestational Age: 40 week(s) and 5 day(s) Sex of Infant: Male [place] Weight (gm): 3382 kg Score (1 Min): 8 Score (5 Min): 9 Discharge Information - Discharge Information Discharge Medications: Iron, Ibuprofen, Vitamins Condition: Good Instruction/Follow Up: Four Weeks, Six Weeks Discharge Physician/CNM: Geena Anders
== END 2016-12-31 17:00 | disposition home or self-care (01) | DRG 767 ==
LOC: OBSVTOIN 01:58 → FLD 01:58 → F2N 14:46 → FOB 12-29 14:00
PROVIDERS: ADMIT Obstetrics & Gynecology; ATTEND Obstetrics & Gynecology
PROC: 0HQ9XZZ Repair Perineum Skin, External Approach (ICD-10-PCS; principal; 2016-12-28)
PROC: 10D17ZZ Extraction of Products of Conception, Retained, Via Natural or Artificial Opening (ICD-10-PCS; principal; 2016-12-28)
PROC: 10E0XZZ Delivery of Products of Conception, External Approach (ICD-10-PCS; principal; 2016-12-28)
PROC: 0W3R7ZZ Control Bleeding in Genitourinary Tract, Via Natural or Artificial Opening (ICD-10-PCS; principal; 2016-12-28)
PROC: 10907ZC Drainage of Amniotic Fluid, Therapeutic from Products of Conception, Via Natural or Artificial Opening (ICD-10-PCS; principal; 2016-12-28)
PROC: 02HV33Z Insertion of Infusion Device into Superior Vena Cava, Percutaneous Approach (ICD-10-PCS; 2016-12-28)
DX: O48.0 Post-term pregnancy (principal); O72.1 Other immediate postpartum hemorrhage; O99.03 Anemia complicating the puerperium; D62 Acute posthemorrhagic anemia; Z37.0 Single live birth; O70.0 First degree perineal laceration during delivery; O34.13 Maternal care for benign tumor of corpus uteri, third trimester; D25.9 Leiomyoma of uterus, unspecified; O99.820 Streptococcus B carrier state complicating pregnancy; Z3A.40 40 weeks gestation of pregnancy
CPT/HCPCS: C1751; J0290; J1200; J2210; J2590; J3010; J3105; P9012; P9016; P9017; P9035

== ENCOUNTER → 2017-02-05 | Outpatient (CLI) | payer OTHER | LOC: FIMAGING 15:42 | PROVIDERS: ATTEND Obstetrics & Gynecology | DX: O72.2 Delayed and secondary postpartum hemorrhage (principal) ==

== ENCOUNTER → 2017-05-08 | Outpatient (CLI) | payer OTHER | LOC: BMCIMAGING 13:26 | PROVIDERS: ATTEND Family Medicine | DX: R22.32 Localized swelling, mass and lump, left upper limb (principal) ==

== ENCOUNTER → 2017-05-14 | Outpatient (CLI) | payer OTHER | LOC: BMCIMAGING 15:47 | PROVIDERS: ATTEND Family Medicine | DX: R22.2 Localized swelling, mass and lump, trunk (principal) ==